=== PATIENT | male | born 1935 ===

== ENCOUNTER 2016-09-19 09:59 | Day surgery (SDC) | payer MEDICARE, OTHER ==
[~2016-09-19] VITALS: Ht 170.2 cm; Wt 93.0 kg
[~2016-09-19 09:59] MED LIST: ACETAMINOPHEN 500 MG TAB (TYLENOL) PO PRN; CHONDROITIN/HYALURONATE (DISCOVISC) 1 ML SYR IO ONE; PHENYLEPHRINE/KETOROLAC 4 ML VIAL IO ONE; SODIUM CHLORIDE FLUSH 3 ML SYR IV PRN; TETRACAINE 0.5% OPHTHALMIC SOLUTION 4 ML BTL ONE; diphenhydrAMINE 50 MG/ML INJ (BENADRYL) IV PRN
--- OUTSIDE RECORDS SUMMARY | 2016-09-19 10:04 | XMS REPORT | Continuity Of Care Document ---
Author Author [facility] Organization [facility] Address [address] [place] [address] Phone Care Team Providers Care Vessel Engineer Name Role Phone CLARA BROOKS, [facility] [place] BROOKS, TAQUERIA Glass CP GRZEGORZ BROOKS, JOSE Palacios PP Results Lab Results Visit/Account #[id number] (September 09, 2012 9:29pm - September 17, 2012 4:48pm) Test Result Reported Date/Time POCGL POCGL(70-105 MG/DL) 137 MG/DL September 10, 2012 6:32am 112 MG/DL September 10, 2012 9:28am 160 MG/DL September 10, 2012 4:44pm 149 MG/DL September 10, 2012 7:58pm 112 MG/DL September 10, 2012 9:36pm 131 MG/DL September 11, 2012 7:20am 140 MG/DL September 11, 2012 11:29am 130 MG/DL September 11, 2012 6:00pm 113 MG/DL September 11, 2012 9:04pm 138 MG/DL September 12, 2012 7:46am 145 MG/DL September 12, 2012 11:52am 177 MG/DL September 12, 2012 5:39pm 93 MG/DL September 12, 2012 11:35pm 139 MG/DL September 13, 2012 7:02am 127 MG/DL September 13, 2012 11:48am 157 MG/DL September 13, 2012 5:57pm 95 MG/DL September 13, 2012 10:19pm 126 MG/DL September 14, 2012 6:41am 126 MG/DL September 14, 2012 4:23pm 144 MG/DL September 14, 2012 4:24pm 107 MG/DL September 14, 2012 7:58pm 99 MG/DL September 14, 2012 11:07pm 121 MG/DL September 15, 2012 11:36am 132 MG/DL September 15, 2012 6:00pm 120 MG/DL September 15, 2012 9:50pm 100 MG/DL September 16, 2012 11:48am 133 MG/DL September 17, 2012 12:56am 104 MG/DL September 17, 2012 9:23am 162 MG/DL September 17, 2012 12:34pm HEMOGLOBIN AND HEMATOCRIT HEMOGLOBIN(13.0-18.0 G/DL) 8.1 G/DL September 13, 2012 2:23pm 9.2 G/DL September 14, 2012 6:04pm 9.7 G/DL September 15, 2012 1:28pm 10.9 G/DL September 16, 2012 1:21pm HEMATOCRIT(39.0-54.0 %) 26.1 % September 13, 2012 2:23pm 29.1 % September 14, 2012 6:04pm 30.8 % September 15, 2012 1:28pm 34.1 % September 16, 2012 1:21pm COMPLETE BLOOD COUNT WITH DIFF WHITE BLOOD COUNT(4.0-11.0 10E3/UL) 7.4 10E3/UL September 10, 2012 5:56pm 7.1 10E3/UL September 11, 2012 1:21am 4.8 10E3/UL September 12, 2012 6:05am 5.6 10E3/UL September 13, 2012 3:31am 5.6 10E3/UL September 14, 2012 7:12am 7.0 10E3/UL September 15, 2012 6:43am 6.1 10E3/UL September 16, 2012 3:41am 6.2 10E3/UL September 17, 2012 4:49am RED BLOOD COUNT(4.40-5.90 10E6/UL) 3.73 10E6/UL September 10, 2012 5:56pm 3.60 10E6/UL September 11, 2012 1:21am 3.25 10E6/UL September 12, 2012 6:05am 3.10 10E6/UL September 13, 2012 3:31am 3.34 10E6/UL September 14, 2012 7:12am 3.58 10E6/UL September 15, 2012 6:43am 3.71 10E6/UL September 16, 2012 3:41am 3.80 10E6/UL September 17, 2012 4:49am HEMOGLOBIN(13.0-18.0 G/DL) 9.8 G/DL September 10, 2012 5:56pm 9.5 G/DL September 11, 2012 1:21am 8.7 G/DL September 12, 2012 6:05am 8.2 G/DL September 13, 2012 3:31am 8.8 G/DL September 14, 2012 7:12am 9.4 G/DL September 15, 2012 6:43am 9.7 G/DL September 16, 2012 3:41am 10.0 G/DL September 17, 2012 4:49am HEMATOCRIT(39.0-54.0 %) 30.5 % September 10, 2012 5:56pm 29.5 % September 11, 2012 1:21am 27.2 % September 12, 2012 6:05am 26.1 % September 13, 2012 3:31am 28.0 % September 14, 2012 7:12am 29.7 % September 15, 2012 6:43am 30.3 % September 16, 2012 3:41am 31.1 % September 17, 2012 4:49am MEAN CORPUSCULAR VOLUME(80.0-100.0 FL) 81.8 FL September 10, 2012 5:56pm 81.9 FL September 11, 2012 1:21am 83.7 FL September 12, 2012 6:05am 84.2 FL September 13, 2012 3:31am 83.8 FL September 14, 2012 7:12am 83.0 FL September 15, 2012 6:43am 81.7 FL September 16, 2012 3:41am 81.8 FL September 17, 2012 4:49am MEAN CORPUSCULAR HEMOGLOBIN(27.0-34.0 PG) 26.3 PG September 10, 2012 5:56pm 26.4 PG September 11, 2012 1:21am 26.8 PG September 12, 2012 6:05am 26.5 PG September 13, 2012 3:31am 26.3 PG September 14, 2012 7:12am 26.3 PG September 15, 2012 6:43am 26.1 PG September 16, 2012 3:41am 26.3 PG September 17, 2012 4:49am MEAN CORPUSCULAR HGB CONC(33.0-37.0 G/DL) 32.1 G/DL September 10, 2012 5:56pm 32.2 G/DL September 11, 2012 1:21am 32.0 G/DL September 12, 2012 6:05am 31.4 G/DL September 13, 2012 3:31am 31.4 G/DL September 14, 2012 7:12am 31.6 G/DL September 15, 2012 6:43am 32.0 G/DL September 16, 2012 3:41am 32.2 G/DL September 17, 2012 4:49am RED CELL DISTRIBUTION WIDTH(11.0-15.0 %) 14.3 % September 10, 2012 5:56pm 14.2 % September 11, 2012 1:21am 14.3 % September 12, 2012 6:05am 14.5 % September 13, 2012 3:31am 14.5 % September 14, 2012 7:12am 14.4 % September 15, 2012 6:43am 14.5 % September 16, 2012 3:41am 15.0 % September 17, 2012 4:49am 777-3: PLATELET COUNT(130-400 10E3/UL) 294 10E3/UL September 10, 2012 5:56pm 276 10E3/UL September 11, 2012 1:21am 259 10E3/UL September 12, 2012 6:05am 266 10E3/UL September 13, 2012 3:31am 280 10E3/UL September 14, 2012 7:12am 252 10E3/UL September 15, 2012 6:43am 217 10E3/UL September 16, 2012 3:41am 260 10E3/UL September 17, 2012 4:49am MEAN PLATELET VOLUME(7.4-11.0 FL) 9.5 FL September 10, 2012 5:56pm 9.1 FL September 11, 2012 1:21am 9.5 FL September 12, 2012 6:05am 10.3 FL September 13, 2012 3:31am 9.9 FL September 14, 2012 7:12am 9.7 FL September 15, 2012 6:43am 9.2 FL September 16, 2012 3:41am 10.0 FL September 17, 2012 4:49am NEUTROPHILS % (AUTO)(40-70 %) 61 % September 10, 2012 5:56pm 54 % September 11, 2012 1:21am 41 % September 12, 2012 6:05am 43 % September 13, 2012 3:31am 50 % September 14, 2012 7:12am 64 % September 15, 2012 6:43am 55 % September 16, 2012 3:41am 51 % September 17, 2012 4:49am LYMPHOCYTES % (AUTO)(15-45 %) 27 % September 10, 2012 5:56pm 33 % September 11, 2012 1:21am 41 % September 12, 2012 6:05am 39 % September 13, 2012 3:31am 35 % September 14, 2012 7:12am 22 % September 15, 2012 6:43am 28 % September 16, 2012 3:41am 34 % September 17, 2012 4:49am MONOCYTES % (AUTO)(2-10 %) 7 % September 10, 2012 5:56pm 7 % September 11, 2012 1:21am 9 % September 12, 2012 6:05am 9 % September 13, 2012 3:31am 7 % September 14, 2012 7:12am 8 % September 15, 2012 6:43am 6 % September 16, 2012 3:41am 6 % September 17, 2012 4:49am EOSINOPHILS % (AUTO)(0-6 %) 5 % September 10, 2012 5:56pm 5 % September 11, 2012 1:21am 8 % September 12, 2012 6:05am 8 % September 13, 2012 3:31am 8 % September 14, 2012 7:12am 6 % September 15, 2012 6:43am 9 % September 16, 2012 3:41am 9 % September 17, 2012 4:49am BASOPHILS % (AUTO)(0-1 %) 0 % September 10, 2012 5:56pm 1 % September 11, 2012 1:21am 2 % September 12, 2012 6:05am 1 % September 13, 2012 3:31am 1 % September 14, 2012 7:12am 0 % September 15, 2012 6:43am 1 % September 16, 2012 3:41am 0 % September 17, 2012 4:49am IMMATURE GRANS % (AUTO)(0-0 %) 0 % September 10, 2012 5:56pm 0 % September 11, 2012 1:21am 0 % September 12, 2012 6:05am 0 % September 13, 2012 3:31am 0 % September 14, 2012 7:12am 0 % September 15, 2012 6:43am 0 % September 16, 2012 3:41am 0 % September 17, 2012 4:49am NEUTROPHILS # (AUTO)(2.5-7.5 10E3/UL) 4.5 10E3/UL September 10, 2012 5:56pm 3.8 10E3/UL September 11, 2012 1:21am 2.0 10E3/UL September 12, 2012 6:05am 2.4 10E3/UL September 13, 2012 3:31am 2.8 10E3/UL September 14, 2012 7:12am 4.5 10E3/UL September 15, 2012 6:43am 3.3 10E3/UL September 16, 2012 3:41am 3.2 10E3/UL September 17, 2012 4:49am LYMPHOCYTES # (AUTO)(1.0-4.0 10E3/UL) 2.0 10E3/UL September 10, 2012 5:56pm 2.4 10E3/UL September 11, 2012 1:21am 2.0 10E3/UL September 12, 2012 6:05am 2.2 10E3/UL September 13, 2012 3:31am 2.0 10E3/UL September 14, 2012 7:12am 1.6 10E3/UL September 15, 2012 6:43am 1.7 10E3/UL September 16, 2012 3:41am 2.1 10E3/UL September 17, 2012 4:49am MONOCYTES # (AUTO)(0.2-0.8 10E3/UL) 0.5 10E3/UL September 10, 2012 5:56pm 0.5 10E3/UL September 11, 2012 1:21am 0.4 10E3/UL September 12, 2012 6:05am 0.5 10E3/UL September 13, 2012 3:31am 0.4 10E3/UL September 14, 2012 7:12am 0.5 10E3/UL September 15, 2012 6:43am 0.4 10E3/UL September 16, 2012 3:41am 0.4 10E3/UL September 17, 2012 4:49am EOSINOPHILS # (AUTO)(0.0-0.4 10E3/UL) 0.4 10E3/UL September 10, 2012 5:56pm 0.3 10E3/UL September 11, 2012 1:21am 0.4 10E3/UL September 12, 2012 6:05am 0.4 10E3/UL September 13, 2012 3:31am 0.4 10E3/UL September 14, 2012 7:12am 0.4 10E3/UL September 15, 2012 6:43am 0.6 10E3/UL September 16, 2012 3:41am 0.5 10E3/UL September 17, 2012 4:49am BASOPHILS # (AUTO)(0.0-0.2 10E3/UL) 0.0 10E3/UL September 10, 2012 5:56pm 0.1 10E3/UL September 11, 2012 1:21am 0.1 10E3/UL September 12, 2012 6:05am 0.1 10E3/UL September 13, 2012 3:31am 0.1 10E3/UL September 14, 2012 7:12am 0.0 10E3/UL September 15, 2012 6:43am 0.0 10E3/UL September 16, 2012 3:41am 0.0 10E3/UL September 17, 2012 4:49am IMMATURE GRANS # (AUTO)(0.0-0.0 10E3/UL) 0.0 10E3/UL September 10, 2012 5:56pm 0.0 10E3/UL September 11, 2012 1:21am 0.0 10E3/UL September 12, 2012 6:05am 0.0 10E3/UL September 13, 2012 3:31am 0.0 10E3/UL September 14, 2012 7:12am 0.0 10E3/UL September 15, 2012 6:43am 0.0 10E3/UL September 16, 2012 3:41am 0.0 10E3/UL September 17, 2012 4:49am DIFF TYPE AUTOMATED September 10, 2012 6:02pm AUTOMATED September 11, 2012 1:24am AUTOMATED September 12, 2012 6:12am AUTOMATED September 13, 2012 3:33am AUTOMATED September 14, 2012 7:14am AUTOMATED September 15, 2012 6:51am AUTOMATED September 16, 2012 4:11am AUTOMATED September 17, 2012 4:54am CBC WITH REFLEXED MANUAL DIFF WHITE BLOOD COUNT(4.0-11.0 10E3/UL) 11.4 10E3/UL September 09, 2012 10:21pm RED BLOOD COUNT(4.40-5.90 10E6/UL) 3.71 10E6/UL September 09, 2012 10:21pm HEMOGLOBIN(13.0-18.0 G/DL) 9.9 G/DL September 09, 2012 10:21pm HEMATOCRIT(39.0-54.0 %) 30.4 % September 09, 2012 10:21pm MEAN CORPUSCULAR VOLUME(80.0-100.0 FL) 81.9 FL September 09, 2012 10:21pm MEAN CORPUSCULAR HEMOGLOBIN(27.0-34.0 PG) 26.7 PG September 09, 2012 10:21pm MEAN CORPUSCULAR HGB CONC(33.0-37.0 G/DL) 32.6 G/DL September 09, 2012 10:21pm RED CELL DISTRIBUTION WIDTH(11.0-15.0 %) 14.1 % September 09, 2012 10:21pm 777-3: PLATELET COUNT(130-400 10E3/UL) 323 10E3/UL September 09, 2012 10:21pm MEAN PLATELET VOLUME(7.4-11.0 FL) 9.8 FL September 09, 2012 10:21pm DIFF TYPE MANUAL September 09, 2012 10:26pm NEUTROPHIL % (MANUAL)(40-70 %) 72 % September 09, 2012 10:45pm LYMPHOCYTES % (MANUAL)(15-45 %) 24 % September 09, 2012 10:45pm MONOCYTES % (MANUAL)(2-10 %) 1 % September 09, 2012 10:45pm EOSINOPHILS % (MANUAL)(0-6 %) 3 % September 09, 2012 10:45pm BASOPHILS % (MANUAL)(0-1 %) 0 % September 09, 2012 10:27pm NEUTROPHILS # (MANUAL)(2.5-7.5 10E3/UL) 8.2 10E3/UL September 09, 2012 10:45pm LYMPHOCYTES # (MANUAL)(1.0-4.0 10E3/UL) 2.7 10E3/UL September 09, 2012 10:45pm MONOCYTES # (MANUAL)(0.2-0.8 10E3/UL) 0.1 10E3/UL September 09, 2012 10:45pm EOSINOPHILS # (MANUAL)(0.0-0.4 10E3/UL) 0.3 10E3/UL September 09, 2012 10:45pm BASOPHILS # (MANUAL)(0.0-0.2 10E3/UL) 0.0 10E3/UL September 09, 2012 10:27pm PLATELET ESTIMATE ADEQUATE September 09, 2012 10:45pm WBC MORPHOLOGY COMMENT 1+ ATYPICAL LYMPHS September 09, 2012 10:46pm RBC MORPHOLOGY COMMENT NORMAL September 09, 2012 10:27pm PLATELET MORPHOLOGY COMMENT NORMAL September 09, 2012 10:27pm 32607-8: PROTHROMBIN TIME WITH INR PROTHROMBIN TIME(12.6-14.9 SEC) 17.1 SEC September 12, 2012 6:55am 25.0 SEC September 17, 2012 5:20am 46417-0: INR 1.43 Result Comments: INR reference interval applies to patients on anticoagulant therapy. Suggested INR therapeutic range for oral anticoagulant therapy: (Stabilized anticoagulated patients) Routine Therapy: 2.0 to 3.0 Recurrent Myocardial Infarction: 2.5 to 3.5 Mechanical Prosthetic Valves: 2.5 to 3.5 September 12, 2012 6:55am 2.33 Result Comments: INR reference interval applies to patients on anticoagulant therapy. Suggested INR therapeutic range for oral anticoagulant therapy: (Stabilized anticoagulated patients) Routine Therapy: 2.0 to 3.0 Recurrent Myocardial Infarction: 2.5 to 3.5 Mechanical Prosthetic Valves: 2.5 to 3.5 September 17, 2012 5:20am PARTIAL THROMBOPLASTIN TIME PARTIAL THROMBOPLASTIN TIME(22.2-37.4 SEC) 26.6 SEC September 10, 2012 6:07pm 82.5 SEC September 11, 2012 1:41am 95.2 SEC September 12, 2012 1:32am 98.3 SEC September 13, 2012 1:43am 30.0 SEC September 14, 2012 7:16am 52.1 SEC Result Comments: CALLED TO VILMA PALOMO AT 2121 BY MAHAD. September 15, 2012 9:21pm 87.3 SEC Result Comments: CALLED TO VILMA PALOMO AT 2121 BY DS. September 16, 2012 3:53am 83.1 SEC Result Comments: CALLED TO VILMA PALOMO AT 2121 BY DS. September 17, 2012 4:58am UA WITH SCREEN FOR CULTURE COLOR,URINE YELLOW September 09, 2012 10:57pm CLARITY,URINE CLEAR September 09, 2012 10:57pm GLUCOSE, URINE(NEGATIVE MG/DL) 100 MG/DL September 09, 2012 10:57pm URINE BILIRUBIN(NEGATIVE) SMALL September 09, 2012 10:57pm KETONES,URINE(NEGATIVE MG/DL) NEGATIVE MG/DL September 09, 2012 10:57pm URINE SPECIFIC GRAVITY(1.001-1.035) Greater than or equal to 1.030 September 09, 2012 10:57pm URINE BLOOD(NEGATIVE) LARGE September 09, 2012 10:57pm URINE PH(5.0-9.0) 5.0 September 09, 2012 10:57pm URINE PROTEIN(Less than 20 MG/DL) 100 MG/DL September 09, 2012 10:57pm URINE UROBILINOGEN(0.2-1.0 MG/DL) 0.2 MG/DL September 09, 2012 10:57pm URINE NITRITE(NEGATIVE) NEGATIVE September 09, 2012 10:57pm LEUKOCYTE ESTERASE ,URINE(NEGATIVE) MODERATE September 09, 2012 10:57pm URINE CULTURE TO FOLLOW September 09, 2012 10:57pm URINE MICROSCOPIC REQUIRED YES September 09, 2012 10:57pm URINE WBCS(/HPF) 4-7 /HPF September 09, 2012 11:04pm URINE RBCS(/HPF) 8-12 /HPF September 09, 2012 11:04pm URINE EPITHELIAL CELLS(/HPF) 0-3 /HPF September 09, 2012 11:04pm BACTERIA,URINE(/HPF) 1+ /HPF September 09, 2012 11:04pm URINE CRYSTALS(/HPF) NONE SEEN /HPF September 09, 2012 10:59pm URINE CASTS(/LPF) 0-3 HYALINE /LPF September 09, 2012 11:04pm URINE COMMENTS 1+ MUCOUS September 09, 2012 11:04pm URINALYSIS, DIPSTICK INF CNTRL COLOR,URINE YELLOW September 10, 2012 1:24am CLARITY,URINE CLEAR September 10, 2012 1:24am GLUCOSE, URINE(NEGATIVE MG/DL) NEGATIVE MG/DL September 10, 2012 1:24am URINE BILIRUBIN(NEGATIVE) NEGATIVE September 10, 2012 1:24am KETONES,URINE(NEGATIVE MG/DL) NEGATIVE MG/DL September 10, 2012 1:24am URINE SPECIFIC GRAVITY(1.001-1.035) 1.020 September 10, 2012 1:24am URINE BLOOD(NEGATIVE) MODERATE September 10, 2012 1:24am URINE PH(5.0-9.0) 5.5 September 10, 2012 1:24am URINE PROTEIN(Less than 20 MG/DL) NEGATIVE MG/DL September 10, 2012 1:24am URINE UROBILINOGEN(0.2-1.0 MG/DL) 0.2 MG/DL September 10, 2012 1:24am URINE NITRITE(NEGATIVE) NEGATIVE September 10, 2012 1:24am LEUKOCYTE ESTERASE ,URINE(NEGATIVE) NEGATIVE September 10, 2012 1:24am URINE CULTURE NOT INDICATED September 10, 2012 1:24am ICTOTEST ICTOTEST COMPLETE METABOLIC PROFILE GLUCOSE(70-110 MG/DL) 121 MG/DL September 09, 2012 10:39pm 122 MG/DL September 15, 2012 6:57am BLOOD UREA NITROGEN(6-20 MG/DL) 40 MG/DL September 09, 2012 10:39pm 9 MG/DL September 15, 2012 6:57am CREATININE(0.50-1.20 MG/DL) 4.41 MG/DL September 09, 2012 10:39pm 1.29 MG/DL September 15, 2012 6:57am EST GLOMERULAR FILTRATION RATE(Greater than or equal to 60) 13 Result Comments: If the patient is of -[place] descent/extraction multiply the eGFR value by 1.212 to obtain the actual eGFR. >=60 mg/dL Normal 30-59 mg/dL Moderate Kidney Disease 15-29 mg/dL Severe Kidney Disease <15 mg/dL Kidney Failure September 09, 2012 10:39pm 54 Result Comments: If the patient is of -[place] descent/extraction multiply the eGFR value by 1.212 to obtain the actual eGFR. >=60 mg/dL Normal 30-59 mg/dL Moderate Kidney Disease 15-29 mg/dL Severe Kidney Disease <15 mg/dL Kidney Failure September 15, 2012 6:59am BUN CREATININE RATIO(10.0-20.0 RATIO) 9.1 RATIO September 09, 2012 10:39pm 7.0 RATIO September 15, 2012 6:57am SODIUM(135-145 MMOL/L) 127 MMOL/L September 09, 2012 10:39pm 139 MMOL/L September 15, 2012 6:57am POTASSIUM(3.6-5.0 MMOL/L) 4.2 MMOL/L September 09, 2012 10:39pm 4.6 MMOL/L September 15, 2012 6:57am CHLORIDE(101-111 MMOL/L) 92 MMOL/L September 09, 2012 10:40pm 110 MMOL/L September 15, 2012 6:57am CO2(21-31 MMOL/L) 20.0 MMOL/L September 09, 2012 10:40pm 23.0 MMOL/L September 15, 2012 6:57am ANION GAP(8-18) 19 September 09, 2012 10:40pm 11 September 15, 2012 6:57am OSMO CALCULATED(270.0-290.0) 266.1 September 09, 2012 10:39pm 277.5 September 15, 2012 6:57am CALCIUM(8.5-10.5 MG/DL) 8.9 MG/DL September 09, 2012 10:40pm 8.5 MG/DL September 15, 2012 6:57am BILIRUBIN,TOTAL(0.1-1.2 MG/DL) 0.5 MG/DL September 09, 2012 10:40pm 0.6 MG/DL September 15, 2012 6:57am ALKALINE PHOSPHATASE(42-121 U/L) 67 U/L September 09, 2012 10:40pm 52 U/L September 15, 2012 6:57am ASPARTATE AMINO TRANSFERASE(10-42 U/L) 29 U/L September 09, 2012 10:40pm 14 U/L September 15, 2012 6:57am ALANINE AMINOTRANSFERASE(10-60 U/L) 38 U/L September 09, 2012 10:40pm 15 U/L September 15, 2012 6:57am TOTAL PROTEIN(6.4-8.2 G/DL) 7.1 G/DL September 09, 2012 10:40pm 6.2 G/DL September 15, 2012 6:57am ALBUMIN(3.5-5.5 G/DL) 3.6 G/DL September 09, 2012 10:40pm 3.0 G/DL September 15, 2012 6:57am GLOBULIN(2.4-3.6) 3.5 September 09, 2012 10:40pm 3.2 September 15, 2012 6:57am ALBUMIN/GLOBULIN RATIO(0.9-1.8 RATIO) 1.0 RATIO September 09, 2012 10:40pm 0.9 RATIO September 15, 2012 6:57am BASIC METABOLIC PANEL GLUCOSE(70-110 MG/DL) 118 MG/DL September 14, 2012 9:59am 131 MG/DL September 16, 2012 4:30am 132 MG/DL September 17, 2012 5:02am BLOOD UREA NITROGEN(6-20 MG/DL) 9 MG/DL September 14, 2012 9:59am 9 MG/DL September 16, 2012 4:30am 12 MG/DL September 17, 2012 5:02am CREATININE(0.50-1.20 MG/DL) 1.20 MG/DL September 14, 2012 9:59am 1.39 MG/DL September 16, 2012 4:30am 1.55 MG/DL September 17, 2012 5:02am EST GLOMERULAR FILTRATION RATE(Greater than or equal to 60) 59 Result Comments: If the patient is of -[place] descent/extraction multiply the eGFR value by 1.212 to obtain the actual eGFR. >=60 mg/dL Normal 30-59 mg/dL Moderate Kidney Disease 15-29 mg/dL Severe Kidney Disease <15 mg/dL Kidney Failure September 14, 2012 10:09am 50 Result Comments: If the patient is of -[place] descent/extraction multiply the eGFR value by 1.212 to obtain the actual eGFR. >=60 mg/dL Normal 30-59 mg/dL Moderate Kidney Disease 15-29 mg/dL Severe Kidney Disease <15 mg/dL Kidney Failure September 16, 2012 4:33am 44 Result Comments: If the patient is of -[place] descent/extraction multiply the eGFR value by 1.212 to obtain the actual eGFR. >=60 mg/dL Normal 30-59 mg/dL Moderate Kidney Disease 15-29 mg/dL Severe Kidney Disease <15 mg/dL Kidney Failure September 17, 2012 5:02am BUN CREATININE RATIO(10.0-20.0 RATIO) 7.5 RATIO September 14, 2012 9:59am 6.5 RATIO September 16, 2012 4:30am 7.7 RATIO September 17, 2012 5:02am SODIUM(135-145 MMOL/L) 141 MMOL/L September 14, 2012 9:59am 134 MMOL/L September 16, 2012 4:30am 135 MMOL/L September 17, 2012 5:02am POTASSIUM(3.6-5.0 MMOL/L) 5.1 MMOL/L September 14, 2012 9:59am 4.3 MMOL/L September 16, 2012 4:30am 4.4 MMOL/L September 17, 2012 5:02am CHLORIDE(101-111 MMOL/L) 112 MMOL/L September 14, 2012 9:59am 104 MMOL/L September 16, 2012 4:30am 103 MMOL/L September 17, 2012 5:02am CO2(21-31 MMOL/L) 21.0 MMOL/L September 14, 2012 9:59am 22.0 MMOL/L September 16, 2012 4:30am 21.0 MMOL/L September 17, 2012 5:02am ANION GAP(8-18) 13 September 14, 2012 9:59am 12 September 16, 2012 4:30am 15 September 17, 2012 5:02am OSMO CALCULATED(270.0-290.0) 281.0 September 14, 2012 9:59am 268.7 September 16, 2012 4:30am 271.6 September 17, 2012 5:02am CALCIUM(8.5-10.5 MG/DL) 8.5 MG/DL September 14, 2012 9:59am 8.5 MG/DL September 16, 2012 4:30am 8.9 MG/DL September 17, 2012 5:02am RENAL PANEL GLUCOSE(70-110 MG/DL) 109 MG/DL September 11, 2012 7:41am 131 MG/DL September 12, 2012 6:35am BLOOD UREA NITROGEN(6-20 MG/DL) 31 MG/DL September 11, 2012 7:41am 18 MG/DL September 12, 2012 6:35am CREATININE(0.50-1.20 MG/DL) 2.48 MG/DL September 11, 2012 7:41am 1.45 MG/DL September 12, 2012 6:35am EST GLOMERULAR FILTRATION RATE(Greater than or equal to 60) 25 Result Comments: If the patient is of -[place] descent/extraction multiply the eGFR value by 1.212 to obtain the actual eGFR. >=60 mg/dL Normal 30-59 mg/dL Moderate Kidney Disease 15-29 mg/dL Severe Kidney Disease <15 mg/dL Kidney Failure September 11, 2012 7:43am 47 Result Comments: If the patient is of -[place] descent/extraction multiply the eGFR value by 1.212 to obtain the actual eGFR. >=60 mg/dL Normal 30-59 mg/dL Moderate Kidney Disease 15-29 mg/dL Severe Kidney Disease <15 mg/dL Kidney Failure September 12, 2012 6:36am SODIUM(135-145 MMOL/L) 135 MMOL/L September 11, 2012 7:41am 139 MMOL/L September 12, 2012 6:35am POTASSIUM(3.6-5.0 MMOL/L) 4.3 MMOL/L September 11, 2012 7:41am 4.9 MMOL/L September 12, 2012 6:35am CHLORIDE(101-111 MMOL/L) 106 MMOL/L September 11, 2012 7:41am 116 MMOL/L September 12, 2012 6:35am CO2(21-31 MMOL/L) 21.0 MMOL/L September 11, 2012 7:41am 19.0 MMOL/L September 12, 2012 6:35am CALCIUM(8.5-10.5 MG/DL) 8.5 MG/DL September 11, 2012 7:41am 8.4 MG/DL September 12, 2012 6:35am PHOSPHORUS(2.5-4.6 MG/DL) 3.8 MG/DL September 11, 2012 7:41am 2.6 MG/DL September 12, 2012 6:35am ALBUMIN(3.5-5.5 G/DL) 3.3 G/DL September 11, 2012 7:41am 2.8 G/DL September 12, 2012 6:35am MAGNESIUM MAGNESIUM(1.8-2.5 MG/DL) 1.3 MG/DL September 15, 2012 6:57am 1.3 MG/DL September 16, 2012 4:30am 1.5 MG/DL September 17, 2012 5:02am TOTAL CPK TOTAL CPK(22-269 U/L) 41 U/L September 10, 2012 8:38pm CPK MB CPK MB(0.6-6.3 NG/ML) 1.7 NG/ML September 10, 2012 8:38pm CARDIAC TROPONIN I CARDIAC TROPONIN I(0.01-0.04 NG/ML) 0.01 NG/ML Result Comments: REFERENCE RANGES: NEGATIVE </=0.04 NG/ML INTERMEDIATE 0.05-0.49 NG/ML POSITIVE >/=0.50 NG/ML September 10, 2012 8:38pm LIPID PROFILE TRIGLYCERIDES(35-160 MG/DL) 201 MG/DL September 15, 2012 6:57am CHOLESTEROL(0-200 MG/DL) 146 MG/DL September 15, 2012 6:57am LDL CHOLESTEROL,DIRECT(0-99 MG/DL) 86 MG/DL September 15, 2012 6:57am VLDL CHOLESTEROL(1-53 MG/DL) 40 MG/DL September 15, 2012 6:57am HDL CHOLESTEROL(29-71 MG/DL) 28 MG/DL September 15, 2012 6:57am CHOL/HDL RATIO(0.0-4.4 RATIO) 5.2 RATIO September 15, 2012 6:57am THYROID STIMULATING HORMONE THYROID STIMULATING HORMONE(0.340-5.600 uIU/ML) 0.390 uIU/ML September 12, 2012 6:35am GLYCOHEMOGLOBIN A1C %A1C(4.6-6.2 %) 6.6 % September 15, 2012 7:00am STOOL POTASSIUM STOOL POTASSIUM(0.0-199.9 mmol/L) 11.3 mmol/L Result Comments: Reference Range Normal 0.0 - 199.9 Elevated >199.9 The performance characteristics of the listed assay was validated by [facility]. The [place] FDA has not approved or cleared this test. The results of this assay can be used for clinical diagnosis without FDA approval. [facility] is a CLIA certified, [place] accredited laboratory for performing high complexity assays such as this one. September 24, 2012 2:09pm STOOL SODIUM STOOL SODIUM(0.0-159.9 mmol/L) 116.8 mmol/L Result Comments: Reference Range Normal 0.0 - 159.9 Elevated > 159.9 The performance characteristics of the listed assay was validated by [facility]. The [place] FDA has not approved or cleared this test. The results of this assay can be used for clinical diagnosis without FDA approval. [facility] is a CLIA certified, [employer] accredited laboratory for performing high complexity assays such as this one. Performed at: [facility] [address] [place] [id number] Mill Order Scheduler: Mo Martinez PhD, Phone: [phone] September 24, 2012 2:09pm Microbiology Results Visit/Account #[id number] (September 09, 2012 9:29pm - September 17, 2012 4:48pm) Procedure Result Specimen #: [id number] URINE CULTURE Result Instance On September 12, 2012 7:14am Source: URINE Special Result Comments: NO GROWTH AFTER 48 HOURS Specimen #: [id number] MRSA SCREEN FOR INFEC CONTROL Result Instance On September 11, 2012 11:15am Source: NARE Special Result Comments: NO MRSA ISOLATED Specimen #: [id number] COMPLETE STOOL EXAM Result Instance On September 11, 2012 9:55pm Source: STOOL Result Prompts: CONSISTENCY LIQUID COLOR BROWN GROSS BLOOD NEGATIVE OCCULT BLOOD POSITIVE STOOL-PH 7 STOOL-CRYSTALS NONE SEEN STOOL-RBC NONE SEEN /HPF STOOL-WBC 0-5 /HPF CELL TYPE POLYS STOOL-MEAT FIBERS NONE SEEN NEUTRAL FAT NEGATIVE SPLIT FAT NEGATIVE GIARDIA SCREEN NEGATIVE CRYPTOSPORIDIUM ASSAY NEGATIVE DIRECT NO OVA OR PARASITES SEEN Specimen #: [id number] SHIGATOXIN Result Instance On September 12, 2012 12:46pm Source: STOOL Result Prompts: SHIGATOXIN 1 NEGATIVE SHIGATOXIN 2 NEGATIVE SHIGATOXIN INT CTRL OK STOOL CULTURE Result Instance On September 15, 2012 7:09am Source: STOOL Special Result Comments: USUAL JULIETH. NO SALMONELLA, SHIGELLA, CAMPYLOBACTER OR E COLI 0157:H7 ISOLATED. Specimen #: [id number] C DIFF (TOXIGENIC) BY PCR Result Instance On September 11, 2012 9:30pm Source: STOOL Result Prompts: TOXIGENIC C DIFF BY PCR NEGATIVE [id number] PRESUMPTIVE NEGATIVE Allergies and Adverse Reactions Allergies and Adverse Reactions Patient Unit Number: [id number] Agent Type Reaction Severity Status Date NO KNOWN ALLERGIES Drug Allergy Unknown Unknown Active April 15, 2008 Problem List Problem List Visit/Account #[id number] (September 09, 2012 9:29pm - September 17, 2012 4:48pm) Active Problems: Code/Condition Comments Documented Start Date Documented Resolved Date 997.99 SURG COMPL-BODY SYST,NEC September 17, 2012 250.00 DIAB FAWAD WO COMPL, TYPE II OR UNSPEC TYPE, NOT UNCNTRLD September 17, 2012 275.2 DIS MAGNESIUM METABOLISM September 17, 2012 285.29 ANEMIA OF OTHER CHRONIC DISEASE September 17, 2012 600.01 HYPERTROPHY (BENIGN) OF PROSTATE W URINARY OBST & OTH LUTS September 17, 2012 788.29 RETENTION OF URINE NEC September 17, 2012 787.91 DIARRHEA September 17, 2012 272.4 HYPERLIPIDEMIA NEC/NOS September 17, 2012 396.3 MITRAL/AORTIC JOSÉ MIGUEL INSUFF September 17, 2012 272.0 PURE HYPERCHOLESTEROLEM September 17, 2012 600.00 HYPERTROPHY (BENIGN) OF PROSTATE W/O URINARY OBST & OTH LUTS September 17, 2012 556.9 ULCERATIVE COLITIS, UNSPECIFIED September 17, 2012 414.00 CORON ATHEROSCLER NOS TYPE VESSEL, HYDABURG OR GRAFT September 17, 2012 401.9 HYPERTENSION NOS September 17, 2012 311 DEPRESSIVE DISORDER NEC September 17, 2012 300.29 OTHER ISOLATED OR SPECIFIC PHOBIAS September 17, 2012 V58.66 LONG-TERM (CURRENT) USE OF ASPIRIN September 17, 2012 V45.81 AORTOCORONARY BYPASS September 17, 2012 V45.82 PERCUTANEOUS TRANSLUM CORON ANGIOPLASTY STATUS September 17, 2012 V44.3 COLOSTOMY STATUS September 17, 2012 V58.63 LONG-TERM(CURRENT)USE OF ANTIPLATELET/ANTITHROMBOTIC September 17, 2012 584.9 ACUTE RENAL FAILURE, UNSPECIFIED September 17, 2012 458.9 HYPOTENSION NOS September 17, 2012 276.2 ACIDOSIS September 17, 2012 425.4 PRIM CARDIOMYOPATHY NEC September 17, 2012 276.1 HYPOSMOLALITY September 17, 2012 427.31 ATRIAL FIBRILLATION September 17, 2012 276.7 HYPERPOTASSEMIA September 17, 2012 Vital Signs Vital Signs Visit/Account #[id number] (September 09, 2012 9:29pm - September 17, 2012 4:48pm) Label First Result Last Result 2710-2: O2% 100 % September 10, 2012 12:00am 99 % September 17, 2012 2:16pm 3141-9: Weight Measured 81.0000 kg September 09, 2012 11:55pm 81.0000 kg September 09, 2012 11:55pm 8310-5: Body Temperature 97.5 degF September 09, 2012 9:27pm 8310-5: Celsius Body Temperature 36.23270 Miriam September 10, 2012 12:00am 36.33424 Miriam September 17, 2012 2:16pm 8310-5: Fahrenheit Body Temperature 98.0 [degF] September 17, 2012 2:16pm 8480-6: BP Systolic 82/ mmHg September 09, 2012 9:27pm 114/67 mm[Hg] September 17, 2012 2:16pm 8867-4: Heart Rate 96 /min September 09, 2012 9:27pm 59 /min September 17, 2012 2:16pm 9279-1: Respiratory Rate 20 /min September 09, 2012 9:27pm 20 /min September 17, 2012 2:16pm Unmapped Query Mnemonic (RESP.SAT) Saturation 98 % September 09, 2012 9:27pm 98 % September 09, 2012 9:27pm Home Medications Home Medications Visit/Account #[id number] (September 09, 2012 9:29pm - September 17, 2012 4:48pm) Medication Dose Route Sig/Schedule Precondition/Indication Comments/ Instructions NDC Toprol Xl(METOPROLOL SUCCINATE) 100 MG TAB 100 MG PO: ORAL DAILY: DAILY Toprol Xl (METOPROLOL SUCCINATE): 79600885537 Ecotrin(ASPIRIN) 325 MG TABLET.DR 325 MG PO: ORAL DAILY: DAILY Ecotrin (ASPIRIN): 71729249142 Nitrostat(NITROGLYCERIN) 0.4 MG TAB.SUBL 0.4 MG SL: SUBLINGUAL Rx Instructions: Every 5 min for chest pain Nitrostat (NITROGLYCERIN): 97282526220 Plavix(CLOPIDOGREL BISULFATE) 75 MG TAB 75 MG PO: ORAL DAILY: DAILY Plavix (CLOPIDOGREL BISULFATE): 90505129190 Multivitamin(MULTIVITAMIN) 1 TAB TABLET 1 TAB PO: ORAL Multivitamin (MULTIVITAMIN): 13096612803 Glucophage(MetFORMin HCL) 850 MG TAB 850 MG PO: ORAL BID: TWICE A DAY Glucophage (MetFORMin HCL): 25609573865 Bactrim Ds 160-800 Mg(SULFAMETHOXAZOLE/TRIMETHOPRIM) 1 TAB TABLET 1 TAB PO: ORAL BID: TWICE A DAY Bactrim Ds 160-800 Mg (SULFAMETHOXAZOLE/TRIMETHOPRIM): 56258176473 Flomax(TAMSULOSIN HCL) 0.4 MG CAP 0.4 MG PO: ORAL DAILY: DAILY Flomax (TAMSULOSIN HCL): 30688307123 Lisinopril(LISINOPRIL) 20 MG TABLET 20 MG PO: ORAL DAILY: DAILY Lisinopril (LISINOPRIL): 08112714039 Digitek(DIGOXIN) 0.125 MG TAB 0.125 MG PO: ORAL DAILY: DAILY Digitek (DIGOXIN): 42766857877 SandoSTATIN INJ(OCTREOTIDE ACETATE) 50 MCG/ML INJECTION 50 MCG SC: SUBCUTANEOUSLY TID: 3 TIMES A DAY SandoSTATIN INJ (OCTREOTIDE ACETATE): 84067556792 Protonix(PANTOPRAZOLE SOD) 40 MG TAB 40 MG PO: ORAL 60ACB: 60 MIN BEFORE BKFST Protonix (PANTOPRAZOLE SOD): 51426248447 Ordered Medications Ordered Medications Visit/Account #[id number] (September 09, 2012 9:29pm - September 17, 2012 4:48pm) Medication Dose Route Sig/Schedule Precondition/Indication Comments/ Instructions NDC IV Medication Carriers: NORMAL SALINE(SODIUM CHLORIDE) 1000 ML INJECTION 1000 ML IV: INTRAVENOUS .Q1H (Rate: 1000 MLS/HR Duration: 1 HR) Rx Order Comments: Order placed as verified: Dose Warnings differ from order puller Dose Warnings differ from order puller Carriers: NORMAL SALINE (SODIUM CHLORIDE): 39105276250 ZOFRAN INJ(ONDansetron HCL) 4 MG/2 ML INJECTION 4 MG IV: INTRAVENOUS NOW: NOW Rx Order Comments: Order placed as verified: Dose Warnings differ from order puller Dose Warnings differ from order puller Label Comments: SLOW IV PUSH MAY BE SUBSTITUTED FOR ANZEMET (DOLASETRON) MAY INCREASE FALL RISK ZOFRAN INJ (ONDansetron HCL): 66089051034Q IV Medication Carriers: NORMAL SALINE(SODIUM CHLORIDE) 1000 ML INJECTION 1000 ML IV: INTRAVENOUS .Q8H (Rate: 125 MLS/HR Duration: 8 HR) Carriers: NORMAL SALINE (SODIUM CHLORIDE): 92226578598 ECOTRIN(ASPIRIN) 325 MG TAB 325 MG PO: ORAL DAILY: DAILY ECOTRIN (ASPIRIN): 19236096126X PLAVIX(CLOPIDOGREL BISULFATE) 75 MG TAB 75 MG PO: ORAL DAILY: DAILY PLAVIX (CLOPIDOGREL BISULFATE): 42134886864 TOPROL XL(METOPROLOL SUCCINATE) 100 MG TAB 100 MG PO: ORAL DAILY: DAILY Label Comments: MAY INCREASE FALL RISK TOPROL XL (METOPROLOL SUCCINATE): 09046273758 FLOMAX(TAMSULOSIN HCL) 0.4 MG CAP 0.4 MG PO: ORAL DAILY: DAILY Label Comments: MAY INCREASE FALL RISK FLOMAX (TAMSULOSIN HCL): 94702428438 IV Medication Carriers: NORMAL SALINE(SODIUM CHLORIDE) 1000 ML INJECTION 250 ML IV: INTRAVENOUS .Q1H (Rate: 250 MLS/HR Duration: 1 HR) Carriers: NORMAL SALINE (SODIUM CHLORIDE): 27205931139 IV Medication Additives: DILTIAZEM HCL 125 MG/25 ML INJECTION Carriers: SODIUM CHLORIDE 100 ML INJECTION 125 ML IV: INTRAVENOUS .Q0M (Rate: 0 MLS/HR Duration: 0 SEC) Rx Order Comments: Order filed UNV: Dose Warnings differ from order puller Label Comments: DILTIAZEM CONC: 1 MG/ML recommended start of 10 mg/hr=10 ml/hr REFRIGERATE Expires 24 HRS after preparation Additives: (DILTIAZEM HCL): 30368326099 Carriers: (SODIUM CHLORIDE): 76823789534 IV Medication Carriers: HEPARIN SOD/DEXTROSE 27630 UNIT/250 ML INJECTION 250 UNIT IV: INTRAVENOUS .Q0M (Rate: 0 MLS/HR Duration: 0 SEC) PRN Reason: PRN Is Schedule, No PRN Reason Listed Label Comments: CONC: 100 UNITS/ML (PREMIX) SEE PROTOCOL FOR RATE ADJUSTMENTS (IF ORDERED) Carriers: (HEPARIN SOD/DEXTROSE): 49828013410 IV Medication Carriers: NORMAL SALINE(SODIUM CHLORIDE) 1000 ML INJECTION 1000 ML IV: INTRAVENOUS .Q8H (Rate: 125 MLS/HR Duration: 8 HR) Carriers: NORMAL SALINE (SODIUM CHLORIDE): 22309629226 LANOXIN(DIGOXIN) 0.125 MG TAB 0.125 MG PO: ORAL DAILY: DAILY Label Comments: MAY INCREASE FALL RISK LANOXIN (DIGOXIN): 38012833296 COUMADIN(WARFARIN SOD) 5 MG TAB 5 MG PO: ORAL DAILY@18 COUMADIN (WARFARIN SOD): 23133133849 SandoSTATIN INJ(OCTREOTIDE ACETATE) 50 MCG/ML INJECTION 50 MCG SC: SUBCUTANEOUSLY TID: 3 TIMES A DAY Label Comments: REFRIGERATE. PROTECT FROM LIGHT MAY INCREASE FALL RISK SandoSTATIN INJ (OCTREOTIDE ACETATE): 47308965963 IV Medication Additives: SODIUM BICARBONATE 50 MEQ/50 ML INJECTION Carriers: 1/2 NS(SODIUM CHLORIDE) 1000 ML INJECTION 1075 ML IV: INTRAVENOUS .[id number] (Rate: 75 MLS/HR Duration: 14 HR 20 MIN) Additives: (SODIUM BICARBONATE): 62340082794 Carriers: 1/2 NS (SODIUM CHLORIDE): 02930637401 PROTONIX(PANTOPRAZOLE SOD) 40 MG TAB 40 MG PO: ORAL 60ACB: 60 MIN BEFORE BKFST PROTONIX (PANTOPRAZOLE SOD): 91428741244 QUESTRAN PWD(CHOLESTYRAMINE) 4 GM PACKET 4 GM PO: ORAL TID@, Label Comments: ADMINISTER OTHER MEDS 1 HR PRIOR OR 4 HR AFTER QUESTRAN QUESTRAN PWD (CHOLESTYRAMINE): 34763401129W SandoSTATIN INJ(OCTREOTIDE ACETATE) 50 MCG/ML INJECTION 50 MCG SC: SUBCUTANEOUSLY TID: 3 TIMES A DAY Label Comments: REFRIGERATE. PROTECT FROM LIGHT MAY INCREASE FALL RISK AMPULE INSTRUCTIONS: HOLD AMPULE IN HAND SO BLUE DOT IS FACING YOU. PLACE THUMB JUST ABOVE BLUE DOT AND SNAP BACKWARDS (AWAY FROM YOU). SandoSTATIN INJ (OCTREOTIDE ACETATE): 71500067762 IV Medication Carriers: NORMAL SALINE(SODIUM CHLORIDE) 1000 ML INJECTION 1000 ML IV: INTRAVENOUS .Q8H (Rate: 125 MLS/HR Duration: 8 HR) Carriers: NORMAL SALINE (SODIUM CHLORIDE): 40002804337 GLUCOPHAGE(MetFORMin HCL) 850 MG TAB 850 MG PO: ORAL BIDWM: WITH BREAKFAST & SUPPER Label Comments: MAY INCREASE FALL RISK GLUCOPHAGE (MetFORMin HCL): 50345266168 BACTRIM DS (160/800)(TRIMETHOPRIM/SULFAMETHOXAZOLE) 1 TAB TAB 1 TAB PO: ORAL BID: TWICE A DAY Label Comments: DS TAB=SMX 800 MG + TMP 160 MG BACTRIM DS (160/800) (TRIMETHOPRIM/SULFAMETHOXAZOLE): 96934680102 IV Medication Carriers: MAGNESIUM SULFATE 2 GM/50 ML INJECTION 50 GM IV: INTRAVENOUS NOW (Rate: 25 MLS/HR Duration: 2 HR) Carriers: (MAGNESIUM SULFATE): 87393604946 COUMADIN(WARFARIN SOD) 5 MG TAB 5 MG PO: ORAL DAILY@18 COUMADIN (WARFARIN SOD): 38313960497 IV Medication Carriers: HEPARIN SOD/DEXTROSE 35685 UNIT/250 ML INJECTION 250 UNIT IV: INTRAVENOUS .Q0M (Rate: 0 MLS/HR Duration: 0 SEC) PRN Reason: PER PROTOCOL Label Comments: Heparin BKDF=757 UNIT/ML (PREMIX) ADJUST RATE PER PROTOCOL Expires 24 HRS after package opened Carriers: (HEPARIN SOD/DEXTROSE): 73922003074 IV Medication Carriers: MAGNESIUM SULFATE 2 GM/50 ML INJECTION 50 GM IV: INTRAVENOUS NOW (Rate: 25 MLS/HR Duration: 2 HR) Carriers: (MAGNESIUM SULFATE): 78630492357 IV Medication Carriers: MAGNESIUM SULFATE 2 GM/50 ML INJECTION 50 GM IV: INTRAVENOUS NOW (Rate: 25 MLS/HR Duration: 2 HR) Carriers: (MAGNESIUM SULFATE): 04322799432 Discharge Medications Discharge Medications Visit/Account #[id number] (September 09, 2012 9:29pm - September 17, 2012 4:48pm) Medication Dose Route Sig/Schedule Precondition/Indication Comments/ Instructions NDC Toprol Xl(METOPROLOL SUCCINATE) 100 MG TAB 100 MG PO: ORAL DAILY: DAILY Toprol Xl (METOPROLOL SUCCINATE): 98090571578 Ecotrin(ASPIRIN) 325 MG TABLET.DR 325 MG PO: ORAL DAILY: DAILY Ecotrin (ASPIRIN): 90568708367 Nitrostat(NITROGLYCERIN) 0.4 MG TAB.SUBL 0.4 MG SL: SUBLINGUAL Rx Instructions: Every 5 min for chest pain Nitrostat (NITROGLYCERIN): 74286482990 Plavix(CLOPIDOGREL BISULFATE) 75 MG TAB 75 MG PO: ORAL DAILY: DAILY Plavix (CLOPIDOGREL BISULFATE): 51903814572 Multivitamin(MULTIVITAMIN) 1 TAB TABLET 1 TAB PO: ORAL Multivitamin (MULTIVITAMIN): 60454412349 Glucophage(MetFORMin HCL) 850 MG TAB 850 MG PO: ORAL BID: TWICE A DAY Glucophage (MetFORMin HCL): 33820860386 Flomax(TAMSULOSIN HCL) 0.4 MG CAP 0.4 MG PO: ORAL DAILY: DAILY Flomax (TAMSULOSIN HCL): 25317059435 Lisinopril(LISINOPRIL) 20 MG TABLET 20 MG PO: ORAL DAILY: DAILY Lisinopril (LISINOPRIL): 46317949259 Digitek(DIGOXIN) 0.125 MG TAB 0.125 MG PO: ORAL DAILY: DAILY Converted from Pharmacy Inpatient Medication Digitek (DIGOXIN): 68291568911 SandoSTATIN INJ(OCTREOTIDE ACETATE) 50 MCG/ML INJECTION 50 MCG SC: SUBCUTANEOUSLY TID: 3 TIMES A DAY Converted from Pharmacy Inpatient Medication SandoSTATIN INJ (OCTREOTIDE ACETATE): 27438276248 Protonix(PANTOPRAZOLE SOD) 40 MG TAB 40 MG PO: ORAL 60ACB: 60 MIN BEFORE BKFST Converted from Pharmacy Inpatient Medication Protonix (PANTOPRAZOLE SOD): 40565436266 Discontinued Medication Dose Route Sig/Schedule Precondition/Indication Comments/ Instructions NDC Bactrim Ds 160-800 Mg(SULFAMETHOXAZOLE/TRIMETHOPRIM) 1 TAB TABLET 1 TAB PO: ORAL BID: TWICE A DAY Status: Discontinued as of 09/17/2012 12:45pm Bactrim Ds 160-800 Mg (SULFAMETHOXAZOLE/TRIMETHOPRIM): 83333446522 History Of Encounters Encounters Visit/Account #[id number] (September 09, 2012 9:29pm - September 17, 2012 4:48pm) HISTORY AND PHYSICAL September 10, 2012 10:40am Dictated By: OSMAN ELIZABETH MD Signed By: OSMAN ELIZABETH MD [address] [address] Patient: TIN BURNHAM JR UNIT/MR#: [id number] : 1935 Age: 77 Sex: M Report#: [id number] Room#: 406-A Location: [facility] Dictator: OSMAN ELIZABETH MD Attn Phys: OSMAN ELIZABETH MD Adm Date: 09/09/12 09/09/12 Disch Date: 09/17/12 ~HISTORY AND PHYSICAL~ Signed PRIMARY CARE PHYSICIAN: Dr. Jose Richard. CHIEF COMPLIANT: Dizziness and generalized weakness. HISTORY OF PRESENT ILLNESS: This is a 77-year-old male with the history of coronary artery disease, hypertension, hypercholesterolemia, ulcerative colitis, status post colectomy in the [facility] on August 14. Patient was recently admitted and discharged home on September 07, 2012. Patient was admitted for acute renal failure with a creatinine of 7.3 and he was discharged with a creatinine of 1.1. Also the patient went home on an indwelling Schuster catheter, to be followed up with a urologist for possible intervention for BPH, which is obstructive. Patient reports that yesterday he was having dizziness and also he was about to pass out. Also, he was unsteady on his feet. His called the ambulance and he was brought here. He was evaluated in the emergency room. His creatinine was 4.41, a steady increase from the discharge date, which was 1.1. The patient also was hypotensive with a blood pressure of 95/50. The patient received boluses of normal saline to maintain his blood pressure. The patient denied any chest pain, nausea, vomiting. However, he was very weak. He also reports that yesterday his urine output was low, about 100 mL. He was planning on visiting with the urologist to get his BPH taken care of. PAST MEDICAL HISTORY: Includes coronary artery disease, status post CABG in and then in 2008, history of hypertension, hypercholesterolemia, ulcerative colitis, status post colectomy, history of BPH, history of chronic back pain, status post laminectomy, noninsulin-dependent diabetes, depression, and claustrophobia. PAST SURGICAL HISTORY: Colectomy and laminectomy. SOCIAL HISTORY: He is an ex-smoker. No alcohol. No illicit drug use. SOCIAL HISTORY: His lives with his . FAMILY HISTORY: Significant for hypertension and alcohol abuse. HOME MEDICATIONS: His medications include aspirin 325 mg 1 p.o. daily, Plavix 75 mg daily, lisinopril 20 mg daily, metformin 850 mg b.i.d., Toprol-XL 100 mg daily, multivitamin tablet 1 tablet daily, nitroglycerin 0.4 mg daily, Flomax 0.4 mg daily, and Bactrim 160/80 at 20 mg 1 p.o. b.i.d. for 10 days. ALLERGIES: NO KNOWN DRUG ALLERGIES. PHYSICAL EXAMINATION: VITAL SIGNS: At the time of examination, the temperature is 97.3, blood pressure is 108/54, pulse is 74, respiratory rate is 20. Oxygen saturation is 100% on room air. GENERAL: The patient looks very weak. EYES: Pupils are equal, reactive and responsive to light. Extraocular muscles intact. Sclerae is nonicteric. HENT: Mouth mucosa is dry. Oropharynx is clear. NECK: Supple. No JVD noted. No carotid bruit noted. LUNGS: Clear to auscultation bilaterally. CARDIOVASCULAR: Regular rate and rhythm. No murmur noted. ABDOMEN: Bowel sounds positive. Soft. Mild suprapubic tenderness noted. No rebound or guarding noted. Slightly distended. EXTREMITIES: No edema noted. MUSCULOSKELETAL: Strength is 5/5 in both upper and lower extremities bilaterally. No sensation loss. NEURO: No focal deficits. Cranial nerves 2-12 are intact. PSYCHIATRIC: No anxiety and no depression noted. SKIN: No rash. No erythema noted. No decubitus ulcers noted. LABORATORY: Today WBCs 11.4, hemoglobin is 9.9, platelet count is 323. Chemistry; his sodium is 127, bicarb is 20, creatinine is 4.41, glucose is 121. AST, ALT and alkaline phosphatase within normal limits. Coagulation; INR is 1.34, PT is slightly elevated at 16.2, PTT is 28.2. Urine has moderate blood noted. Negative for nitrates. Small leukocyte esterase, 1+ urine bacteria noted. Chest x-ray is negative for infiltrate and there are no other chest x-rays noted. ASSESSMENT AND PLAN: 1. Hypotension; this may be secondary to the recent increase in the blood pressure medication, that is lisinopril, which was increased to 20 mg from 10 mg, or due to his dehydration. We will hold his blood pressure medication. Patient already received a bolus of IV fluids, and we will continue maintenance IV fluids for now. We will continue to monitor his blood pressure for now. 2. Acute renal failure. The patient's baseline creatinine is around 1.1. The patient's creatinine today is 4.4, it may be secondary to dehydration and benign prostatic hypertrophy, but we will hydrate the patient. We will continue to monitor, and we will consult urology. We will continue to monitor his creatinine daily. 3. History of anemia, this may be anemia of chronic disease. His MCV is within normal limits. We will continue to monitor. Hemoglobin is about 9 today. 4. Diabetes mellitus type 2. The patient is on metformin. His creatinine is high. We will stop metformin and we will put him on a sliding scale of insulin. 5. Benign prostatic hypertrophy. He has an indwelling Schuster. We will consult urology. 6. History of coronary artery disease, because of his hypotension we are holding his metoprolol as well as his THADDEUS inhibitor. We will continue to monitor. Depending on his blood pressure level we will reintroduce metoprolol. Continue aspirin and Plavix for now. 7. We will put the Nexium p.o. daily for gastrointestinal prophylaxis and SCDs for DVT prophylaxis. 8. Hyponatremia, etiology is unclear. This may be due to not eating well. The patient is on normal saline, will continue to monitor. The patient does not have any mental status change at this time. RB:MedQ [id number] D. 09/10/2012 T. 09/10/2012 CC: MD JOSE SIMON MD ~ Dictated By: OSMAN ELIZABETH MD Signed By: OSMAN ELIZABETH MD 09/11/12 0753 OSMAN ELIZABETH MD 09/11/12 0753 DISCHARGE SUMMARY September 17, 2012 6:28pm Dictated By: YAZAN HESS MD Signed By: YAZAN HESS MD [address] [address] Patient: TIN BURNHAM JR UNIT/MR#: [id number] : 1935 Age: 77 Sex: M Report#: [id number] Room#: 406-A Location: [facility] Dictator: YAZAN HESS MD Attn Phys: OSMAN ELIZABETH MD Adm Date: 09/09/12 09/09/12 Disch Date: 09/17/12 ~DISCHARGE SUMMARY~ Signed PRIMARY DISCHARGE DIAGNOSES: 1. Ulcerative colitis with secretory diarrhea with history of colectomy. 2. Benign prostatic hypertrophy with urinary retention, now status post transurethral resection of the prostate. 3. Atrial fibrillation and rate control. 4. Acute renal failure, stable. 5. History of coronary artery disease. 6. Hyperkalemia, now resolved. 7. Anemia of chronic disease. 8. Hypertension. 9. Hyperlipidemia. 10.Type 2 diabetes. 11.Hypomagnesemia, now resolved. CONSULTS: 1. Dr. Ray from Cardiology. 2. Dr. Ladd from Gastroenterology. 3. Dr. Artem Zurita from Urology. 4. Dr. Mcknight from Nephrology. PROCEDURES: 1. Transurethral resection of the prostate with PT button, performed on September 14, [address] Zurita. 2. Echocardiogram performed on September 11, 2012, revealed left ventricular size at upper limits of normal with low normal ejection fraction of 55%. Moderate left atrial dilatation and inferior wall motion abnormality, with mild aortic sclerosis and moderate mitral regurgitation. Mitral tricuspid regurgitation as well. ADMISSION HISTORY OF PRESENT ILLNESS: The patient is a 77-year-old male, who presented to [facility] due to high output from his ostomy with subsequent dehydration and acute renal failure. The patient was previously admitted on September 03 with acute renal failure, and nausea and vomiting. The patient stayed here for approximately 1 to 2 days, and was subsequently discharged after rehydration. The patient had recurrent problems with dehydration and high ostomy output, and was subsequently readmitted due to similar symptoms. The patient initially responded well at the previous admission to volume resuscitation and was discharged with a creatinine of 1.1 on day of discharge. The patient subsequently became dehydrated again and was presented to the Emergency Department with a creatinine of 4.4, and was found to be hypotensive. The patient also was in atrial fibrillation with rapid ventricular response. The patient felt lightheaded as well. The patient reported having very high output from his ostomy and having to changes back 4 to 5 times a day, and was full of liquid stool. The patient was admitted to the Hospitalist Service for further management. Please see admission history and physical for further details of past medical history and admission physical exam. ADMISSION LABORATORY DATA: Revealed hemoglobin of 9.9, white blood cell count of 11.4, platelet count of 323. Chemistry profile revealed a sodium of 127, potassium of 4.2, chloride of 92, carbon dioxide 20, BUN 40, creatinine 4.4, glucose 121, and calcium 8.9. HOSPITAL COURSE: The patient was admitted and again rehydrated. The patient continued to have high ostomy output. Dr. Ladd from Gastroenterology was consulted. The patient was started on octreotide and Questran, which significantly improved his ostomy consistency and decreased his output. The patient was weaned off of the Questran during the hospitalization, and at discharge was on octreotide injections 3 times a day. The patient was tolerating this well, and was recommended to be discharged on this regimen and follow up with Dr. Ladd shortly after discharge. The patient was seen by Nephrology for his acute renal failure. The patient was again rehydrated and nephrotoxic medications were stopped. The patient's creatinine improved from 4.4 at admission to 1.5 at discharge. The patient will follow up with Dr. Mcknight a few weeks after discharge as well. The patient had some problems with atrial fibrillation due to his dehydration. The patient was seen by Dr. Ray, and his atrial fibrillation rate control medications were adjusted. The patient at discharge was on metoprolol and digoxin for heart rate control. After extensive discussion, and due to problems with anemia and potential bleeding from his recent TURP and his GI disease and colostomy, it was decided that it would be safer for the patient not to be anticoagulated. The patient was placed on aspirin and Plavix for stroke prophylaxis with atrial fibrillation at discharge. The patient had a significant BPH and urinary retention, and was unable to get his Schuster catheter removed during this hospitalization. Urology was consulted, and the patient subsequently underwent a TURP procedure, which was performed on September 14, 2012. The patient tolerated the procedure well. The patient was able to have his Schuster catheter removed on postoperative day #2, and at discharge was able to void with minimal residuals. On September 17, the patient was subsequently discharged to home with follow up with the various consultants. The patient's care was discussed with Dr. Richard on day of discharge. CONDITION ON DISCHARGE: Good. DISCHARGE INSTRUCTIONS: 1. Diet: Low-fat, low-cholesterol diet as tolerated. 2. Activity: Light activity as tolerated. DISCHARGE MEDICATIONS: 1. Digoxin 0.125 mg p.o. daily. 2. Octreotide 50 mcg subcutaneous 3 times daily. 3. Protonix 40 mg p.o. daily. 4. Metoprolol succinate 100 mg p.o. daily. 5. Aspirin 325 mg p.o. daily. 6. Nitroglycerin 0.4 mg sublingual p.r.n. chest pain. 7. Clopidogrel 75 mg p.o. daily. 8. Multivitamin 1 tab p.o. daily. 9. Metformin 850 mg p.o. b.i.d. 10.Tamsulosin 0.4 mg p.o. daily. 11.Lisinopril 20 mg p.o. daily. FOLLOWUP: 1. The patient will follow up with Dr. Mcknight on September 27, 2012 at 11 a.m. 2. The patient will follow up with Dr. Zurita at [facility] for bladder test on September 24, 2012 at 2 p.m. 3. The patient will follow up with Dr. Zurita at [facility] for followup appointment on October 01, 2012 at 1:10 p.m. 4. The patient will follow up with Dr. Wilberto BECERRA at [facility] on October 01, 2012 at 3 p.m. 5. The patient will follow up with Dr. Jose Richard at [facility] on September 27, 2012 at 9 a.m. 6. The patient will follow up with Dr. Ray at [facility] on October 17, 2012 at 3:30 p.m. Time spent on discharge preparations on day of discharge was approximately 40 minutes. ADH:MedQ [id number] D. 09/17/2012 T. 09/17/2012 CC: MD OSMAN HEAD MD LAVELLE A ELLIS, MD BRIAN S PAVEY, DO BRIAN G SMITH, MD GARY G WILLIAMS, MD KARIL L BELLAH, MD ~ Dictated By: YAZAN HESS MD Signed By: YAZAN HESS MD 09/18/122014 YAZAN HESS MD 09/18/122014
[2016-09-19 10:23] VITALS: BP 126/76
[2016-09-19] MEDS ORDERED: ATOR40TA59 PO (10:41)
[2016-09-19] MEDS ORDERED: FENO145T2 PO (10:41)
[2016-09-19] MEDS ORDERED: METO-274 PO (10:41)
[2016-09-19] MEDS ORDERED: INSU100I10 SQ (10:41)
[2016-09-19] MEDS ORDERED: CLPD75T PO (10:41)
[2016-09-19] MEDS ORDERED: NF-SITA50T PO (10:41)
[2016-09-19] MEDS ORDERED: ASPI-860 PO (10:41)
[2016-09-19] MEDS: LIDOCAINE 3.5% OPHTH GEL (AKTEN) 1 ML BTL OS SCH ×3 (10:49→11:17)
[2016-09-19] MEDS: CATARACT PRE-OP EYE DROPS 0.5ML SYRINGE OS SCH ×2 (11:08→11:17)
[2016-09-19] MEDS: HOME MEDICATION OS SCH ×2 (11:08→11:17)
[2016-09-19] MEDS ORDERED: MIDAZOLAM 2 MG/2 ML (VERSED) VIAL ONE (11:34)
[2016-09-19] MEDS ORDERED: ACETYLCHOLINE CHLORIDE 20 MG/2 ML KIT IO ONE (12:04)
[2016-09-19 12:18] VITALS: BP 134/84
== END 2016-09-19 12:34 | disposition home or self-care (01) ==
LOC: ASC 09:59
PROVIDERS: ATTEND Ophthalmology
DX: H26.9 Unspecified cataract (principal); R00.1 Bradycardia, unspecified; M19.90 Unspecified osteoarthritis, unspecified site; I25.2 Old myocardial infarction; E78.00 Pure hypercholesterolemia, unspecified; K51.90 Ulcerative colitis, unspecified, without complications; I12.9 Hypertensive chronic kidney disease with stage 1 through stage 4 chronic kidney disease, or unspecified chronic kidney disease; E11.22 Type 2 diabetes mellitus with diabetic chronic kidney disease; N18.3 Chronic kidney disease, stage 3 (moderate); I48.0 Paroxysmal atrial fibrillation; I71.4 Abdominal aortic aneurysm, without rupture; Z79.4 Long term (current) use of insulin; Z79.899 Other long term (current) drug therapy; Z79.02 Long term (current) use of antithrombotics/antiplatelets; Z87.891 Personal history of nicotine dependence; Z95.1 Presence of aortocoronary bypass graft
CPT/HCPCS: 66984; 93005; A9270; C9447; J2250; V2632